=== PATIENT | male | born 1995 | race Caucasian/White ===

== ENCOUNTER 2018-07-24 01:40 | Emergency (ER) | payer SELFPAY ==
[~2018-07-24] VITALS: Ht 172.7 cm; Wt 70.3 kg
[2018-07-24] MEDS ORDERED: TETANUS/DIPHTHERIA TOX ADULT 0.5 ML SYR IM STA (02:14)
[2018-07-24] MEDS ORDERED: TETRACAINE HCL 0.5% OPTH SOLN 4 ML BTL OP ONE (02:15)
== END 2018-07-24 02:22 | disposition home or self-care (01) ==
LOC: FSED 01:40
DX: H57.12 Ocular pain, left eye (principal); T15.12XA Foreign body in conjunctival sac, left eye, initial encounter; Y92.008 Other place in unspecified non-institutional (private) residence as the place of occurrence of the external cause
CPT/HCPCS: 90714; 99283